=== PATIENT | female | born 1965 | race Caucasian/White ===

== ENCOUNTER 2016-09-23 06:23 | Day surgery (SDC) | payer OTHER ==
[~2016-09-23] VITALS: Ht 149.9 cm; Wt 67.2 kg
[2016-09-23] VITALS (7 sets, daily range): BP systolic 103–133; BP diastolic 46–67; PULSE 63–85; TEMP 97.5–97.9
[2016-09-23] MEDS ORDERED: LIPITOR 80MG80 MG PO (06:54)
[2016-09-23] MEDS ORDERED: EPA FISH OIL1 SGL PO (06:55)
[2016-09-23] MEDS ORDERED: TOPROL XL 25MG25 MG PO (07:06)
[2016-09-23] MEDS ORDERED: VITAMIN D32000 I1 PO (07:08)
[2016-09-23] MEDS ORDERED: RELAFEN750 MG PO (07:08)
[2016-09-23] MEDS ORDERED: PRILOSEC 20MG20 MG PO (07:09)
[2016-09-23] MEDS ORDERED: PREMARIN .3MG0.3 MG PO (07:11)
[2016-09-23] MEDS ORDERED: ASPIRIN 81M81 MG/TA2 PO (07:12)
[2016-09-23] MEDS ORDERED: BIOTIN10000 MC1 PO (07:16)
== END 2016-09-23 09:45 | disposition home or self-care (01) ==
LOC: SDCO 06:23
DX: K21.9 Gastro-esophageal reflux disease without esophagitis (principal); K30 Functional dyspepsia; K22.8 Other specified diseases of esophagus; M19.90 Unspecified osteoarthritis, unspecified site; K85.90 Acute pancreatitis without necrosis or infection, unspecified; E78.1 Pure hyperglyceridemia; G43.909 Migraine, unspecified, not intractable, without status migrainosus; R74.8 Abnormal levels of other serum enzymes; Z83.71 Family history of colonic polyps; Z90.49 Acquired absence of other specified parts of digestive tract; Z90.710 Acquired absence of both cervix and uterus
CPT/HCPCS: OP; J2250; J2405; J3010; J7030

== ENCOUNTER → 2019-05-21 | Outpatient (CLI) | payer BC, OTHER ==
[~2019-05-21] MED LIST: ASPIRIN 81M81 MG/TA2 PO; BIOTIN10000 MC1 PO; EPA FISH OIL1 SGL PO; LIPITOR 80MG80 MG PO; PREMARIN .3MG0.3 MG PO; PRILOSEC 20MG20 MG PO; RELAFEN750 MG PO; TOPROL XL 25MG25 MG PO; VITAMIN D32000 I1 PO
== END ==
LOC: COL.VAS 13:27
DX: R60.0 Localized edema (principal); Z96.651 Presence of right artificial knee joint

== ENCOUNTER 2020-10-14 15:45 | Outpatient (RCR) | payer BC, OTHER | END 2020-10-15 | LOC: WSC | DX: M25.661 Stiffness of right knee, not elsewhere classified (principal); Z96.651 Presence of right artificial knee joint ==

== ENCOUNTER → 2020-11-05 | Outpatient (CLI) | payer BC, OTHER | LOC: COL.RAD 06:51 | DX: Z12.11 Encounter for screening for malignant neoplasm of colon (principal); K76.0 Fatty (change of) liver, not elsewhere classified; K22.70 Barrett's esophagus without dysplasia; Z90.49 Acquired absence of other specified parts of digestive tract ==